=== PATIENT | male | born 1960 | race Caucasian/White ===

== ENCOUNTER 2018-07-01 10:31 | Day surgery (SDC) | payer MEDICARE, BC ==
[~2018-07-01] VITALS: Ht 175.3 cm; Wt 131.4 kg
--- NOTE | ~2018-07-01 | OP ---
PATIENT NAME: REID SELLERS MEDICAL RECORD: [id number] :60 [facility] DATE: SURGEON: ANKUSH WANG MD DATE OF OPERATION: 07/01/2018 PROCEDURE: EGD with biopsy. REFERRING PHYSICIAN: Wilfredo Tate MD INDICATIONS: Mr. Sellers is a delightful 58-year-old gentleman with history of nonalcoholic cirrhosis of the liver, diagnosed in January 2018 during hospitalization for hepatic encephalopathy. He is followed at the [facility] in [place] (Nayla Pizano APN). His cirrhosis is suspected secondary to nonalcoholic steatohepatitis (fatty liver disease was diagnosed over 15 years ago). He presents for outpatient surveillance EGD. PREMEDICATIONS: Total IV anesthesia (propofol 100 mg). INDICATIONS FOR TIVA: Cirrhosis of the liver. INSTRUMENT: Olympus video gastroscope. PROCEDURE AND FINDINGS: After receiving informed consent, Mr. Sellers's posterior pharynx was anesthetized with Cetacaine spray, placed in left lateral decubitus position, and sedated as per anesthesia. After achieving an adequate level of sedation, gastroscope was introduced per orally and advanced to the duodenum without difficulty. There was a subtle column of esophageal varix noted in the distal esophagus that flattened with insufflation. Small hiatal hernia was present. Gastric mucosa was notable for several erosions in fundus, body of the stomach, and antrum. One of the erosions in the fundus had stigmata of recent bleeding (brown pigmented material). In the fundus, was a 0.3-cm sessile polyp that was cold biopsied. Antral biopsies were also obtained to rule out H. pylori. Pylorus was patent and competent. There was mild erythema in the duodenal bulb. The second portion of the duodenum also had mild patchy erythema, and in the proximal aspect of the second portion of the duodenum, was a 0.3-cm polyp that was cold biopsied. Gastroscope was then withdrawn. Mr. Sellers tolerated the procedure well. No immediate complications. ASSESSMENT: 1. Early grade I esophageal varix, flattened with insufflation. 2. Small hiatal hernia. 3. Erosive gastritis. 4. Gastric polyp. 5. Small duodenal polyp. 6. Mild duodenitis. RECOMMENDATIONS: 1. Avoid nonsteroidal anti-inflammatory drugs. 2. Zantac 150 mg p.o. b.i.d. 3. Colonoscopy as scheduled. TRANSINT:[id number] Voice Confirmation ID: [id number] DOCUMENT ID: [id number] OPERATIVE REPORT [id number] REID SELLERS TERRI MD at 2002 CC: WILFREDO TATE MD [id number] DICTATION DATE: 07/01/18 1353 MEDICAL CONSULTANT: 07/01/18 1533 [facility] [place] 07/01/[address] [address]
[~2018-07-01 10:31] MED LIST: ACETAMINOPHEN325 MG PO; ALDACTONE50 MG; ALDACTONE50 MG PO; ATIVAN1 MG PO; BENADRYL25 MG PO; CIPRO500 MG PO; CLEOCIN PREMIX600 MG; COLACE100 MG PO; CUBICIN500 MG IV; CYCLOBENZAPRINE10 MG PO; DEMEROL50 MG PO; ENDOCET 7.5/3251 TAB PO; FEVERALL RC; GABAPENTIN100 MG PO; GLIPIZIDE10 MG PO; GLUCOPHAGE500 MG PO; GLUCOTROL 5 MG T5 MG PO; HUMULIN R100 U/ML SC; HYDROCHLOROTHIA25 MG PO; HYDROCODONE-APA1 TAB PO; MORPHINE 44 MG/1 M1 IV; NEURONTIN 300300 MG OR; NEURONTIN 300300 MG PO; NORVASC10 MG PO; NORVASC2.5 MG PO; NORVASC5 MG PO; PERCOCET 10/3251 TA1 PO; RIFADIN300 MG; SALINE FLUSH10 ML IV; SKELAXIN800 MG PO; SUP RC; SYNTHROID50 MCG PO; TEKTURNA300 MG PO; TIMOPTIC 0.5 % O5 ML EACH EYE; UROCIT-K10 MEQ; UROCIT-K10 MEQ OR; UROCIT-K10 MEQ PO; VALIUM10 MG PO; VANCOMYCIN 750750 MG IV; VANCOMYCIN H1 G/VIA1 IV; XALATAN 0.0052.5 ML EACH EYE; ZESTRIL40 MG OR; ZOCOR20 MG PO; ZOFRAN4 MG PO
[2018-07-01 11:02] LABS: ANION GAP 10.7 mmol/L (8-16); CALCIUM 8.6 mg/dL (8.5-10.1); CARBON DIOXIDE 26.6 mmol/L (21.0-32.0); CREATININE - SERUM 1.2 mg/dL (0.6-1.3); POTASSIUM - SERUM 4.3 mmol/L (3.5-5.1)
[2018-07-01] MEDS ORDERED: NEURONTIN600 MG PO (12:19)
[2018-07-01] MEDS ORDERED: UROCIT-K10 MEQ PO (12:21)
[2018-07-01] MEDS ORDERED: DOXYCYCLINE HY100 M2 PO (12:24)
[2018-07-01] MEDS ORDERED: ZANAFLEX4 MG PO (12:26)
[2018-07-01] MEDS ORDERED: CHRONULAC30 ML PO (12:26)
[2018-07-01] MEDS ORDERED: ELAVIL25 MG PO (12:26)
[2018-07-01] MEDS ORDERED: XIFAXAN550 MG PO (12:27)
[2018-07-01] MEDS ORDERED: LASIX20 MG PO (12:29)
[2018-07-01 12:40] VITALS: BP 138/68; Ht 175.3 cm; Wt 131.4 kg
== END 2018-07-01 14:47 | disposition home or self-care (01) ==
LOC: D.OPS 10:31
PROVIDERS: Anesthesiology
DX: K74.69 Other cirrhosis of liver (principal); I85.10 Secondary esophageal varices without bleeding; K29.00 Acute gastritis without bleeding; K44.9 Diaphragmatic hernia without obstruction or gangrene; K31.7 Polyp of stomach and duodenum; K29.80 Duodenitis without bleeding; K29.50 Unspecified chronic gastritis without bleeding; Z01.812 Encounter for preprocedural laboratory examination

== ENCOUNTER 2018-08-21 12:15 | Day surgery (SDC) | payer MEDICARE, BC ==
[~2018-08-21] VITALS: Ht 175.3 cm; Wt 129.5 kg
[~2018-08-21 12:15] MED LIST changes: +CHRONULAC30 ML PO; +DOXYCYCLINE HY100 M2 PO; +ELAVIL25 MG PO; +LASIX20 MG PO; +NEURONTIN600 MG PO; +XIFAXAN550 MG PO; +ZANAFLEX4 MG PO
[2018-08-21 12:47] LABS: HEMATOCRIT 42.4 % (42.0-54.0); HEMOGLOBIN 14.7 g/dL (13.5-17.5); MCH 32.8 pg (26.0-34.0); MCHC 34.7 g/dL (31.0-37.0); MCV 94.6 fL (80.0-100.0); MEAN PLATELET VOLUME 11.1 fL (7.4-10.4); RBC 4.48 10x6/uL (4.20-6.10); RDW 13.9 % (11.5-14.5); WBC 5.8 10x3/uL (4.8-10.8)
[2018-08-21 12:50] LABS: PLATELET COUNT 56 10x3/uL (130-400)
[2018-08-21 12:53] LABS: ANION GAP 15.5 mmol/L (8-16); CALCIUM 9.2 mg/dL (8.5-10.1); CARBON DIOXIDE 25.9 mmol/L (21.0-32.0); CREATININE - SERUM 1.4 mg/dL (0.6-1.3); POTASSIUM - SERUM 4.4 mmol/L (3.5-5.1)
[2018-08-21 13:27] VITALS: Ht 175.3 cm; Wt 129.5 kg
[2018-08-21 14:15] LABS: PLATELET ESTIMATE DECREASED
--- NOTE | 2018-08-23 14:29 | OP ---
PATIENT NAME: REID SELLERS MEDICAL RECORD: [id number] :60 [facility] AD[facility] DATE: SURGEON: ANKUSH WANG MD DATE OF OPERATION: 08/21/2018 REFERRING PHYSICIAN: Wilfredo Tate MD INDICATIONS: Mr. Sellers is delightful 58-year-old gentleman with a history of cirrhosis secondary to nonalcoholic steatohepatitis. He presents for outpatient screening colonoscopy. PREMEDICATIONS: Total IV anesthesia (propofol 270 mg). INSTRUMENT: Olympus video colonoscope, pediatric. PROCEDURE AND FINDINGS: After receiving informed consent, Mr. Sellers was placed in left lateral decubitus position and sedated as per anesthesia. After achieving adequate level of sedation, digital rectal exam was performed that showed no external hemorrhoidal tags, fissures, or fistulas; normal sphincter tone; and no palpable rectal masses. The colonoscope was introduced per rectally and advanced to the cecum without difficulty. The cecum, IC valve, and appendiceal orifice were identified. Within the cecum, was a 0.25-cm sessile polyp that was ablated with hot biopsy forceps. As the colonoscope was withdrawn, careful inspection was made of the paredes of colon. Overall mucosa had normal vascular and fold pattern. In the distal transverse colon, there was one small 0.25- to 0.3-cm sessile polyp that was removed with hot biopsy forceps technique. Also in the distal transverse colon were 2 other polyps measuring 0.25 cm in size that were ablated with the hot biopsy forceps. In the descending colon, was a 0.3-cm sessile polyp, ablated with the hot biopsy forceps. There were few small diverticula in the sigmoid colon. Retroflexion in rectum showed no internal hemorrhoids. A good prep was present. Mr. Sellers tolerated the procedure well. No immediate complications. Withdrawal time was 10 minutes. ASSESSMENT: 1. Four small polyps, status post ablation. 2. One small polyp, status post hot biopsy removal. 3. Mild sigmoid diverticulosis coli. RECOMMENDATIONS: 1. Follow up histopathology. 2. Avoid aspirin, nonsteroidal anti-inflammatory drugs, and GUTIERREZ-2 inhibitors for 14 days post-polypectomy. 3. High-fiber diet. 4. We recommend followup colonoscopy in 5 years (pending nature of polyp histopathology). TRANSINT:[id number] Voice Confirmation ID: [id number] DOCUMENT ID: [id number] OPERATIVE REPORT [id number] REID SELLERS TERRI MD at 1429 CC: CRISTINA VEE APN and WILFREDO TATE MD [id number] DICTATION DATE: 08/21/18 1416 CELLAR WORKER: 08/21/18 1818 [facility] [place] 08/21/18 [facility] [address] [facility] [place] [address]
== END 2018-08-21 15:00 | disposition home or self-care (01) ==
LOC: D.OPS 12:15
PROVIDERS: Anesthesiology
DX: Z12.11 Encounter for screening for malignant neoplasm of colon (principal); K63.5 Polyp of colon; K57.30 Diverticulosis of large intestine without perforation or abscess without bleeding; K75.81 Nonalcoholic steatohepatitis (NASH); Z01.812 Encounter for preprocedural laboratory examination